=== PATIENT | male | born 1960 | race Caucasian/White ===

== ENCOUNTER 2024-09-25 11:19 | Outpatient (CLI) | payer MEDICARE, BC ==
[2024-09-25 13:13] LABS: #Monocytes 0.87 10x3/uL (0.0-1.1); #Neutrophils 6.02 10x3/uL (1.5-8.4); %Lymphocytes 25.6 % (18.0-47.0); %Monocytes 8.7 % (0.0-10.0); %Neutrophils 60.3 % (40.0-75.0); Hematocrit 43.6 % (38.8-50.0); Hemoglobin 14.1 g/dL (13.5-17.5); Mean Corpuscular HGB CONC 32.3 g/dL (32.0-36.0); Mean Corpuscular Hemoglobin 27.9 pg (27.0-33.0); Mean Corpuscular Volume 86.2 fL (81.2-95.1); Mean Platelet Volume 12.5 fL (7.4-10.4); Platelet Count 182 10x3/uL (150-450); Red Blood Cell (RBC) Count 5.06 10x6/uL (4.32-5.72); White Blood Cell (WBC) Count 9.98 10x3/uL (3.5-10.5)
[2024-09-25 13:37] LABS: Anion Gap 15 mmol/L (10-20); BUN (Urea Nitrogen) 18 mg/dL (8.4-25.7); Calc. Creatinine Clearance 0 mL/min (70-130); Calcium 9.9 mg/dL (7.8-10.44); Carbon Dioxide 26 mmol/L (23-31); Chloride 101 mmol/L (98-107); Estimated GFR 85; Glucose 376 mg/dL (80-115); Potassium 4.8 mmol/L (3.5-5.1); Sodium 137 mmol/L (136-145)
== END 2024-09-25 11:20 | disposition home or self-care (01) ==
LOC: CSHLAB 11:19
PROVIDERS: ATTEND Surgery
DX: Z01.818 Encounter for other preprocedural examination (principal); K40.90 Unilateral inguinal hernia, without obstruction or gangrene, not specified as recurrent
CPT/HCPCS: 80048; 85025; 93005; 93010